=== PATIENT | female | born 1995 ===

== ENCOUNTER 2020-07-04 12:13 | Observation (INO) ==
[2020-07-04 12:50] LABS: Bilirubin,Urine Negative (Negative); Blood,Urine Moderate (Negative); Clarity,Urine Clear (Clear); Color,Urine Light-Yellow (Yellow); Glucose,Urine (UA) Normal (Normal); Ketones,Urine Negative (Negative); Leukocyte Esterase,Urine Negative (Negative); Mucus,Urine Few per lpf (None-Few); Nitrite,Urine Negative (Negative); PH,Urine 6.5 pH Units (5.0-8.0); Protein,Urine Negative (Neg-Trace); Specific Gravity,Urine 1.016 (1.010-1.025); Squamous Epithelial Cell,Urine Few per hpf (None-Few); Urobilinogen,Urine Normal (Normal); WBC,Urine 0-3 per hpf (0-3)
[2020-07-04 12:51] LABS: Amphetamine Screen,Urine Negative ng/mL (Cutoff=1000); Barbiturate Screen,Urine Negative ng/mL (Cutoff=200); Benzodiazepines Screen,Urine Negative ng/mL (Cutoff=200); Cannabinoid Screen,Urine Negative ng/mL (Cutoff = 50); Cocaine Screen,Urine Negative ng/mL (Cutoff= 300); Opiate Screen,Urine Negative ng/mL (Cutoff=300); Phencyclidine Screen,Urine Negative ng/mL (Cutoff=25)
[2020-07-04 13:14] LABS: Basophils % 0.5 %; Eosinophils # 0.1 K/mcL (0.0-0.6); Eosinophils % 1.9 %; Hematocrit 36.8 % (35.3-44.9); Hemoglobin 11.3 g/dL (11.5-15.4); Immature Granulocytes % 0.3 % (0-4); Lymphocytes # 1.9 K/mcL (0.6-4.6); Lymphocytes % 25.9 %; Mean Corpuscular HGB Conc 30.7 g/dL (31.6-35.5); Mean Corpuscular Hemoglobin 23.4 pg (28.0-33.3); Mean Corpuscular Volume 76.2 fL (83.0-100.0); Mean Platelet Volume 8.9 fL (9.4-12.4); Monocytes # 0.5 K/mcL (0.0-1.3); Monocytes % 7.2 %; Neutrophils # 4.7 K/mcL (1.6-8.9); Platelet Count 368 K/mcL (140-400); Red Blood Count 4.83 M/mcL (3.82-4.97); Segmented Neutrophils % 64.2 %; White Blood Count 7.4 K/mcL (4.3-11.1)
[2020-07-04 13:39] LABS: Acetaminophen < 10 mcg/mL (10-20); BUN/Creatinine Ratio 13 (6-26); Blood Urea Nitrogen 9 mg/dL (6-20); Calcium 9.5 mg/dL (8.6-10.3); Carbon Dioxide 29 mEq/L (23-29); Chloride 101 mEq/L (98-107); Ethanol < 10 mg/dL (Less than 10); Glucose 142 mg/dL (70-105); Osmolality,Calculated 283 (280-300); Salicylate < 2.5 mg/dL (15.0-30.0); Sodium 136 mEq/L (136-145); eGFR For African Americans > 60 (> 60); eGFR For Non-African Americans > 60 (> 60)
[2020-07-04] MEDS ORDERED: haloperidoL 5 MG TABLET PO PRN (15:44)
[2020-07-04] MEDS ORDERED: Haloperidol Lactate 5 MG/ML VIAL IM PRN (15:44)
[2020-07-04] MEDS ORDERED: traZODone 50 MG TABLET PO PRN (15:44)
[2020-07-04] MEDS ORDERED: hydrOXYzine pamoate 25 MG CAPSULE PO PRN (15:44)
[2020-07-04] MEDS ORDERED: Baclofen 10 MG TABLET PO PRN (15:46)
[2020-07-04] MEDS: Acetaminophen 325 MG TABLET PO PRN (18:41)
[2020-07-05] MEDS: Acetaminophen 325 MG TABLET PO PRN (07:50)
[2020-07-05 08:07] VITALS: BP 147/82
[2020-07-05] MEDS ORDERED: NON-FORMULARY MEDICATION 1 EACH EACH (Epinephrine 0.3 MG/0.3 ML Auto.Injct) IM PRN (11:51)
[2020-07-05] MEDS ORDERED: SUMAtriptan succinate 50 MG TABLET PO PRN (11:51)
[2020-07-05] MEDS ORDERED: NON-FORMULARY MEDICATION 1 EACH EACH (Ondansetron Hcl [Zofran] 4 MG Tablet) PO PRN (11:51)
[2020-07-05] MEDS ORDERED: Ondansetron ODT 4 MG TAB.RAPDIS SL PRN (11:55)
[2020-07-05] MEDS ORDERED: PALIPERIDONE PALMITATE 234 MG/1.5 ML SYRINGE IM SCH (12:00)
[2020-07-05] MEDS ORDERED: PALIPERIDONE PALMITATE 234 MG IM SCH (12:30)
[2020-07-05] MEDS ORDERED: Sucralfate 1 GM TABLET PO SCH (15:00)
[2020-07-05] MEDS ORDERED: *HR* Metformin 500 MG TABLET PO SCH (17:00)
[2020-07-05] MEDS ORDERED: OXCARBAZEPINE 300 MG PO SCH (21:00)
[2020-07-05] MEDS ORDERED: Apixaban 5 MG TABLET PO SCH ×2 (21:00)
[2020-07-05] MEDS ORDERED: OXcarbazepine 150 MG TABLET PO SCH (21:00)
[2020-07-06] MEDS ORDERED: Topiramate 25 MG TABLET PO SCH (09:00)
[2020-07-06] MEDS ORDERED: Tiotropium 10 INH DOSE IH SCH (09:00)
== END 2020-07-05 15:40 | disposition home or self-care (01) ==
LOC: EMEROOARM 12:13 → 1ANU 12:13
PROVIDERS: ADMIT Psychiatry & Neurology Forensic Psychiatry; ATTEND Psychiatry & Neurology Forensic Psychiatry